=== PATIENT | male | born 1950 | race African-American/Black ===

== ENCOUNTER 2019-04-03 08:38 | Day surgery (SDC) | payer OTHER ==
[2019-04-03] MEDS ORDERED: PROPOFOL 40 ML (11:07)
== END 2019-04-03 12:45 | disposition home or self-care (01) ==
LOC: GIL 08:38
DX: Z12.11 Encounter for screening for malignant neoplasm of colon (principal); K64.8 Other hemorrhoids; D12.5 Benign neoplasm of sigmoid colon; D12.3 Benign neoplasm of transverse colon; I10 Essential (primary) hypertension; E78.5 Hyperlipidemia, unspecified; E03.9 Hypothyroidism, unspecified; Z79.82 Long term (current) use of aspirin
CPT/HCPCS: 45380; 88305